=== PATIENT | male | born 1995 | race Two or more races ===

== ENCOUNTER 2020-01-20 04:35 | Emergency (ER) | payer MEDICAID ==
[~2020-01-20] VITALS: Ht 165.1 cm; Wt 62.0 kg
[2020-01-20] MEDS ORDERED: MAGNESIUM/ALUMINUM HYDROXIDE/SIMETHICONE 30ML UDC PO STA (06:11)
[2020-01-20] MEDS ORDERED: SODIUM CHLORIDE 0.9% 1,000 ML IV ONE (06:11)
[2020-01-20] MEDS ORDERED: ONDANSETRON HCL 4MG/2ML INJ IV STA (06:11)
[2020-01-20 06:31] LABS: BASOPHILS % 0.5 % (0.0-2.0); EOSINOPHILS % 0.3 % (0.0-5.0); HEMATOCRIT. 49.1 % (42.0-52.0); HEMOGLOBIN. 17.4 g/dL (14.0-18.0); MEAN CORPUSCULAR HEMOGLOBIN 30.4 pg (28.0-32.0); MEAN PLATELET VOLUME 7.7 fl (7.4-10.4); MONOCYTES % 4.9 % (2.0-8.0); NEUTROPHILS % 70.3 % (40.0-76.0); PLATELET 340 x1000/uL (130-400); RED BLOOD CELL COUNT 5.71 mill/uL (4.7-6.1); RED CELL DISTRIBUTION WIDTH 12.8 % (11.6-14.6)
[2020-01-20 06:36] LABS: CHLORIDE 107 mEq/L (98-107)
[2020-01-20 08:08] VITALS: BP 129/81
[2020-01-20 12:21] LABS: CLARITY URINE CLEAR (CLEAR); COLOR URINE YELLOW (YELLOW); KETONES URINE 3+ (NEGATIVE); LEUKOCYTE ESTERASE URINE NEGATIVE (NEGATIVE); NITRITE URINE NEGATIVE (NEGATIVE); OCCULT BLOOD URINE NEGATIVE (NEGATIVE); PROTEIN URINE NEGATIVE (NEGATIVE); SPECIFIC GRAVITY URINE 1.022 (1.005-1.030)
== END 2020-01-20 08:19 | disposition home or self-care (01) ==
LOC: ER 04:35
DX: R10.13 Epigastric pain (principal); R11.0 Nausea; F12.10 Cannabis abuse, uncomplicated
CPT/HCPCS: 36415; 71045; 74018; 80053; 81003; 83690; 85025; 96361; 96374; 99285; J2405; J7030